=== PATIENT | male | born 1950 | race Caucasian/White ===

== ENCOUNTER 2023-05-22 17:25 | Emergency (ER) | payer MEDICARE, MEDICAID, SELFPAY ==
--- NOTE | ~2023-05-22 | XR_ITS ---
EXAMINATION: XR FOOT, RIGHT CLINICAL INFORMATION: Second toe pain, swelling. COMPARISON: None available. TECHNIQUE: AP, lateral, and oblique views of the right foot. FINDINGS: The bones and soft tissues are normal. No fracture. Alignment is anatomic. Joint spaces are maintained. There is a small retrocalcaneal enthesophyte. XR/XR foot RT min 3V IMPRESSION: Unremarkable right foot exam
--- NOTE | 2023-05-22 17:44 | ED.BACK ---
HPI - Back Pain/Injury General Chief Complaint: Skin/Abscess/Foreign Body Stated Complaint: lower back pain, toe pain Time Seen by Provider: 05/22/23 21:01 Source: patient Mode of arrival: ambulatory Limitations: no limitations History of Present Illness HPI Narrative: Patient is a 72-year-old male presenting to the emergency department with multiple complaints. He reports right 2nd toe pain for 4 days since dropping a can of tuna on his foot. He also complains of a wound to his left buttock for several days. States he was on the ground doing sit-ups and it unsure if injured the area that way. Reports intermittent shortness of breath for the past 2-3 days but denies cough or fevers. Denies chest pain or palpitations. Denies abdominal pain, nausea, vomiting, diarrhea. Denies sore throat or ear pain. MD elicited complaint: back pain Onset (ago): day(s) Timing: constant Severity: severe Similar Symptoms Previously: No Quality: aching Work related injury: No Related Data Previous Rx's Medication Instructions Recorded cephalexin 500 mg capsule 500 mg PO QID 10 days #40 caps 05/22/23 doxycycline hyclate 100 mg capsule 100 mg PO BID #20 caps 05/22/23 Allergies Allergy/AdvReac Type Severity Reaction Status Date / Time No Known Allergies Allergy Verified 05/22/23 17:51 [No Known Allergies*] Review of Systems Review of Systems: As per HPI. Yes all other systems are reviewed and are negative Constitutional: Constitutional: Reports as per HPI [facility] Social History Social History Advance Directives: No Advance Directives Information Provided: No Physical Exam Vital Signs: Vital Signs: Last Vital Signs Temp 100.8 F H 05/22/23 21:49 Pulse 88 05/22/23 21:49 Resp 16 05/22/23 21:49 BP 147/89 H 05/22/23 21:49 Pulse Ox 96 05/22/23 21:49 O2 Del Method Room Air 05/22/23 21:49 BMI result Body Mass Index 26.7 Vital signs have been reviewed and appear to be correct. Blood pressure normal. Heart rate normal. Respiratory rate normal. Temperature febrile. Oxygen saturation normal. Const: General: cooperative, healthy appearing and no acute distress Orientation/consciousness: oriented to person, oriented to place, oriented to time and patient oriented x3 Limitations: no limitations HEENT: Head: Yes normocephalic and Yes atraumatic Ears: external ears normal General nose exam: Normal external nose present Face and sinus: Yes face symmetric Mouth: oropharynx normal and moist mucous membranes Throat: Yes uvula midline Eyes: Pupils: Equal, round and reactive pupils present Neck: Neck: Yes normal visual inspection and Yes supple Resp: Effort & Inspection: normal respiratory effort and able to speak in complete sentences Auscultation: clear to auscultation bilaterally Cardio: Rate: regular rate Rhythm: regular rhythm Heart sounds: S1 normal heart sound present and S2 normal heart sound present GI: Palpation (GI): Soft to palpation and nontender Auscultation: normoactive bowel sounds : General: Yes no CVA tenderness Back/Spine/Pelvis: Back: no CVA tenderness Skin: General skin exam: elasticity normal and turgor normal Full body images: 1. Large area of erythema and induration to left medial buttock with central puncture wound, no fluctuance or drainage Neuro: General: oriented to person, oriented to place, oriented to time, patient oriented x3, moves all extremities, no focal motor deficits and CN's II-XI intact bilaterally Cranial nerves: Yes Equal, round and reactive pupils present Cognition (Neuro): normal cognition Extrem: General: Yes full ROM, Yes no pedal edema and Yes no calf tenderness Psych: Mental Status: mental status grossly normal Affect: normal affect Thought process: Normal thought process present Course Course Course Narrative: c/o shortness of breath x 3 days Injury to right little toe after dropping a can onto it. States the toenail is coming off Lesion to left upper buttock x 5 days. States the lesion is hard and roughly 4 cm wide. He is concerned there may be a piece of glass or metal in the lesion causing the pain. States he ate a chicken 5 days ago that smelled like antifreeze. Denies n/v/d, fevers, or chills RME: A&Ox4, BARRY x 4, LS CTA, HR RRR, 4 cm circular warm area on left inner buttock with no evidence of purulent discharge RME completed by Osmel Medications Administered Discontinued Medications Generic Name Dose Route Start Last Admin Trade Name Freq PRN Reason Stop Dose Admin Acetaminophen 650 mg 05/22/23 22:43 05/22/23 22:50 Acetaminophen 325 Mg Tablet PO 05/22/23 22:44 Not Given ONCE ONE Cephalexin HCl 500 mg 05/22/23 22:43 05/22/23 22:50 Cephalexin 500 Mg Capsule PO 05/22/23 22:44 Not Given ONCE ONE Doxycycline Monohydrate 100 mg 05/22/23 22:43 05/22/23 22:50 Doxycycline Monohydrate 100 Mg Capsule PO 05/22/23 22:44 Not Given ONCE ONE Medical Decision Making Medical Decision Making [facility] Narrative: Patient is a 72-year-old male presenting to the emergency department with multiple complaints. On exam patient is awake, A+Ox3, BP elevated, VS otherwise WNL, febrile, normal neurological exam without focal deficits, physical exam findings as above. Given reported symptoms and physical exam findings, initial differential includes abscess vs cellulitis, right toe contusion vs fracture, viral illness, Covid, flu, bronchitis. Labs drawn in waiting room notable for leukocytosis with left shift, elevated CRP and ESR. Covid swab positive. Patient stating that he wishes to leave against medical advise prior to x-ray or imaging of buttock because he needs to feed his dog. Discussed risks of leaving with patient, up to and including sepsis, and/or and patient signed AMA form. Will send prescriptions for doxycycline and Keflex to the pharmacy for buttock abscess. Patient declined treatment with Paxlovid for COVID. Patient declining imaging of right toe or buttock. Advised patient he can return to the emergency department at any time. Can use Tylenol and ibuprofen for pain and fever. Return precautions discussed with patient and he verbalized understanding, states he will return tomorrow after caring for his dog. Differential Diagnosis Differential Diagnoses: The differential diagnosis associated with the presentation includes As per [facility]. Lab Data [facility] Lab Attestation statement: I reviewed the patient's lab results. As per [facility] 05/22/23 18:30 05/22/23 18:30 Labs: Lab Results 05/22/23 Range/Units 18:30 WBC 12.3 H (4.8-10.8) X10*3/uL RBC 4.28 L (4.60-5.80) X10*6/uL Hgb 13.0 L (14.0-18.0) g/dl Hct 38.1 L (42.0-52.0) % MCV 89.0 (80.0-98.0) fL MCH 30.4 (27.0-33.0) pg MCHC 34.1 (31.0-36.0) g/dl RDW 12.5 (11.0-16.0) % Plt Count 147 L (160-400) X10*3/uL MPV 9.6 (9.4-12.4) fL Immature Gran % (Auto) 0.2 (0.0-0.4) % Neut % (Auto) 86.4 H (45-73) % Lymph % (Auto) 7.6 L (20-40) % [place] % (Auto) 5.7 (2-11) % Eos % (Auto) 0.0 (0-4) % Baso % (Auto) 0.1 (0-2) % Lymph # (Auto) 0.9 L (1.2-4.9) X10*3/uL [place] # (Auto) 0.7 (0.1-1.2) X10*3/uL Eos # (Auto) 0.0 (0.0-0.4) X10*3/uL Baso # (Auto) 0.0 (0.0-0.2) X10*3/uL Abs Immat Gran (auto) 0.03 (0.00-0.03) X10*3/uL Absolute Neuts (auto) 10.6 H (2.0-8.3) x10*3/uL Absolute Nucleated RBC 0.000 (0.0-0.012) X10*3/uL Nucleated RBC % (auto) 0.0 (0.0-0.2) /100WBC ESR 75 H (0-15) MM/HR Sodium 136 (135-145) mmol/L Potassium 4.0 (3.3-5.1) mmol/L Chloride 100 (96-108) mmol/L Carbon Dioxide 27 (22-29) mmol/L Anion Gap 13 (12-20) BUN 14 (9-16) mg/dL Creatinine 1.02 (0.5-1.4) mg/dL Estim Creat Clear Calc 71.7 Estimated GFR > 60 Random Glucose 129 H (60-115) mg/dL Calcium 9.2 (8.4-10.2) mg/dL Total Bilirubin 1.1 H (0.0-1.0) mg/dL AST 53 H (5-37) U/L ALT 30 (0-40) U/L Alkaline Phosphatase 102 (39-117) U/L C-Reactive Protein 14.48 H (< or = 0.50) mg/dL Total Protein 8.3 H (6.5-8.0) g/dL Albumin 4.3 (3.5-5.0) g/dL COVID-19 (MARIA EUGENIA) Positive A (Negative) COVID-19 Clin Com See Note Influenza Type A (JAYE) Negative (Negative) Influenza Type B (JAYE) Negative (Negative) Influenza A & B Note See Note External Record Review External record reviewed: Inpatient record, Office record and Outpatient record Tests considered The following testing was considered but not selected: x-ray, CT, patient left AMA Prescription Management I considered prescription management with: Antibiotic Discharge Plan Discharge Clinical Impression: Abscess of buttock, left, Toe pain, right, COVID-19 Patient Disposition: Left Against Medical Advice Instructions: Abscess (ED), Abscess Follow-up (ED), COVID-19 (Coronavirus Disease 2019) (ED) Additional Instructions: You have been evaluated in the emergency department today for skin infection, also known as an abscess. Please take your prescribed antibiotics as directed for the full course of the medication. You should also apply warm compresses to your buttocks several times daily. Please assess the area daily for signs of increasing redness, swelling, thick yellow drainage and return immediately if this occurs. You tested positive for Covid today, please continue to wear a mask while symptomatic. You can use Tylenol or ibuprofen per package instructions every 6 hours as needed for pain. If necessary, you can alternate these medications so that you can take one medication every 3 hours. For instance, at noon take ibuprofen, then at 3:00 p.m. take Tylenol, then at 6:00 p.m. take ibuprofen. Please schedule an appointment for follow-up with your primary care physician as soon as possible. Return to the emergency department if you experience recurrent vomiting, fevers greater than 100.4? F, increasing area of redness, warmth around the area, foul-smelling discharge from the area, increased tenderness around the area, or any other concerning symptoms. Prescriptions: New doxycycline hyclate 100 mg capsule 100 mg PO BID Qty: 20 0RF cephalexin 500 mg capsule 500 mg PO QID 10 Days Qty: 40 0RF Stand Alone Forms: Against Medical Advice Discharge Date/Time: 05/22/23 22:51
[2023-05-22 17:46] VITALS: BP 139/86; PULSE 106; RESP 20; TEMP 37.2; O2SAT 97; BMI 26.7
[2023-05-22 18:34] LABS: MANUAL DIFF FLAG NO
[2023-05-22 18:35] LABS: Basophils Percent Auto 0.1 % (0-2); Hematocrit 38.1 % (42.0-52.0); Imm Gran Abs Auto 0.03 X10*3/uL (0.00-0.03); Imm Gran Pct Auto 0.2 % (0.0-0.4); Lymphocytes Absolute Auto 0.9 X10*3/uL (1.2-4.9); Lymphocytes Percent Auto 7.6 % (20-40); Mean Corpuscular HGB Conc 34.1 g/dl (31.0-36.0); Mean Corpuscular Hemoglobin 30.4 pg (27.0-33.0); Mean Platelet Volume 9.6 fL (9.4-12.4); Monocytes Absolute Auto 0.7 X10*3/uL (0.1-1.2); Monocytes Percent Auto 5.7 % (2-11); Neutrophils Absolute Auto 10.6 x10*3/uL (2.0-8.3); Neutrophils Percent Auto 86.4 % (45-73); Platelet Count 147 X10*3/uL (160-400); Red Blood Count 4.28 X10*6/uL (4.60-5.80); Red Cell Distribution Width 12.5 % (11.0-16.0); White Blood Count 12.3 X10*3/uL (4.8-10.8)
[2023-05-22 18:49] LABS: Alanine Aminotransferase 30 U/L (0-40); Albumin Level 4.3 g/dL (3.5-5.0); Alkaline Phosphatase 102 U/L (39-117); Anion Gap 13 (12-20); Aspartate Amino Transferase 53 U/L (5-37); Bilirubin Total 1.1 mg/dL (0.0-1.0); Blood Urea Nitrogen 14 mg/dL (9-16); C Reactive Protein 14.48 mg/dL (< or = 0.50); Calcium 9.2 mg/dL (8.4-10.2); Carbon Dioxide 27 mmol/L (22-29); Chloride 100 mmol/L (96-108); Creatinine Clr Calc Pharmacy 71.7; Estimated Glomerular Filt Rate > 60; Glucose Random 129 mg/dL (60-115); Sodium 136 mmol/L (135-145); Total Protein 8.3 g/dL (6.5-8.0)
[2023-05-22 18:51] LABS: COVID-19 Test Positive (Negative); IDNOW Serial# 08D9AD1C; IDNOW Serial# 152EDE1D; Influenza A Negative (Negative); Influenza B2 Negative (Negative)
[2023-05-22 19:12] LABS: Erythrocyte Sedimentation Rate 75 MM/HR (0-15)
[2023-05-22 19:50] VITALS: BP 162/96; PULSE 96; RESP 16; TEMP 37.9; O2SAT 96
[2023-05-22 21:49] VITALS: BP 147/89; PULSE 88; RESP 16; TEMP 38.2; O2SAT 96
== END 2023-05-22 22:51 | disposition left against medical advice (07) ==
PROVIDERS: Nurse Practitioner Family; Emergency Provider Student in an Organized Health Care Education/Training Program
DX: U07.1 COVID-19 (principal); R06.02 Shortness of breath; M79.674 Pain in right toe(s); L02.31 Cutaneous abscess of buttock
CPT/HCPCS: 36415; 73630; 80053; 85025; 85652; 86140; 87502; 87635; 99283

== ENCOUNTER 2025-01-24 15:18 | Outpatient (REF) | payer MEDICARE, MEDICAID, SELFPAY ==
--- NOTE | ~2025-01-24 | XR_ITS ---
EXAMINATION: XR KNEE, RIGHT CLINICAL INFORMATION: swelling in R knee x 3 mo COMPARISON: None available. TECHNIQUE: Three views of the right knee. FINDINGS: No fracture, dislocation, or suspicious bone lesion. There is severe medial compartment joint space narrowing with near hraa-nx-aqso appearance, mild subchondral sclerosis and marginal osteophytic spurs. There are mild to moderate similar patellofemoral joint changes. Minimal varus angulation of the knee. There is spurring of the tibial spines. There is a large suprapatellar joint effusion. There is no soft tissue abnormality. XR/XR knee RT 3V IMPRESSION: 1. No acute bony abnormalities of the right knee. 2. Severe medial compartment joint space narrowing. 3. Joint effusion. Electronically signed by: Shiraz Ruvalcaba MD 01/24/2025 04:16 PM EDT
--- OUTSIDE RECORDS SUMMARY | 2025-01-24 14:20 | XMS_ITS | Encounter Summary ---
Author Organization [employer] Address [address] [place] [address] Care Team Providers Care Commissions Manager Name Role Phone Unavailable Primary Care Provider Unavailabl e Reason for Referral * Consultation (Routine) - Pending Review Specialty Diagnoses / Procedures Referred By Michael isabel Referred To Contact Orthopaedic Surgery Diagnoses Pain and swelling of right knee Sunni Gaines ANP [address] [place] [address] Phone: tel: fax: Referral ID Status Reason Start Date Expiration Date Visits Requested Visits Authorized [id number] Pending Review Specialty Services Required 01/24/2025 01/24/2026 1 1 Reason for Visit * Reason Comments Altered Mental Status Depression Encounter Details Date Type Department Care Team (Late st Contact Info) Description 01/24/2025 2:20 PM EDT Office Visit [facility] [address] [place] [address] Sunni Gaines ANP [address] [place] [address] Anxiety and depression (Primary Dx); Pain and swelling of right knee; Routine screening for STI (sexually transmitted infection); Screening, lipid Social History Tobacco Use Types Packs/Day Years Used Date Smoking Tobacco: Never Passive Smoke Exposure: Never Smokeless Tobacco: Never Alcohol Use Standard Drinks/Week Comments Never 0 (1 standard drink = 0.6 oz pur e alcohol) Sex and Gender Information Value Date Recorded Sex Assigned at Male 03/11/2022 10:30 AM EDT Legal Sex Male 10:30 AM EDT Gender Identity Male 03/11/2022 10:30 AM EDT Sexual Orientation Straight 03/11/2022 10 :30 AM EDT documented as of this encounter Last Filed Vital Signs Vital Sign Reading Time Taken Comments Blood Pressure 128/76 01/24/2025 2:08 PM EDT Pulse 86 01/24/2025 2:08 PM EDT Temperature 37 C (98.6 F) 01/24/2025 2:08 PM EDT Respiratory Rate 18 01/24/2025 2:08 PM EDT Oxygen Saturation 96% 01/24/2025 2:08 PM EDT Inhaled Oxygen Concentration - - Weight 89.5 kg (197 lb 6.4 oz) 01/24/2025 2:08 P M EDT Height - - Body Mass Index 27.53 03/26/2024 1:19 PM EST documented in this encounter Progress Notes * ANGELO Bentley - 01/24/2025 2:40 PM EDT Lorenzo Styles is 74 y.o. patient here today for sick visit. HPI Relatively new pt to [facility], not yet established w/ PCP. Last visit here 08/04/24 for shingles Lives alone. Never smoked. No EtOH Not employed. He is here today mostly for therapy and services. Does report knee pain as below Clinician Chinyere (Sarahi Emerson) to room. PMH incl cut to E in 1971 when he injured circulation in RLE and reports now has varicose veins and R knee swelling R knee swelling: for 3 mos, improving but still persists RLE +varicose veins, mild swelling, R knee Uses golf club to ambulate (like a cane) Smokes MJ Review of Systems Constitutional: Negative for chills and fever. HENT: Negative for sore throat. Respiratory: Negative for cough and shortness of breath. Cardiovascular: Negative for chest pain. Gastrointestinal: Negative for constipation and diarrhea. Endocrine: Negative for polydipsia, polyphagia and polyuria. Genitourinary: Negative for dysuria. Musculoskeletal: Positive for arthralgias, gait problem and joint swelling. Psychiatric/Behavioral: Positive for dysphoric mood. The patient is nervous/anxious. Problem List[1] Objective BP 128/76 (BP Location: Left arm, Patient Position: Sitting, BP Cuff Size: Adult) Pulse 86 Temp98.6 ??F (37 ??C) (Oral) Resp 18 Wt 197 lb 6.4 oz (89.5 kg) SpO2 96% BMI 27.53 kg/m?? Physical Exam Vitals reviewed. Constitutional: General: He is not in acute distress. Appearance: Normal appearance. He is not ill-appearing. HENT: Head: Normocephalic and atraumatic. Eyes: General: No scleral icterus. Extraocular Movements: Extraocular movements intact. Pupils: Pupils are equal, round, and reactive to light. Cardiovascular: Rate and Rhythm: Normal rate and regular rhythm. Pulmonary: Effort: Pulmonary effort is normal. No accessory muscle usage or respiratory distress. Musculoskeletal: Comments: R knee swollen, no erythema; Trace swelling RLE, +moderate varicosities Neurological: Mental Status: He is alert and oriented to person, place, and time. Psychiatric: Mood and Affect: Mood normal. Behavior: Behavior normal. Diagnoses and all orders for this visit: Anxiety and depression Check labs as ordered today and previously Met w/ clinician today who will refer to therapy services Reviewed impact of depression/anxiety and stress on memory and things like word recall, and how marijuana use can also impact this Encouraged to smoke less MJ - TSH W/Reflex to FT4; Future Pain and swelling of right knee Ortho referral and check XR Walks w cane - needs actual cane, using golf club - XR Knee 3 Views Right; Future Routine screening for STI (sexually transmitted infection) New pt labs - Hepatitis C Antibody with Reflex to HCV, RNA, Quantitative, Real-Time PCR; Future - HIV-1/2 Antigen and Antibodies, Fourth Generation, with Reflexes; Future - Syphilis Screen; Future Screening, lipid - Lipid Panel, Standard; Future No future appointments. Messaged new pt team again for appt, pt now has new phone # [1] There is no problem list on file for this patient. documented in this encounter Plan of Treatment Scheduled Orders Name Type Priority Associated Diagnoses Orde r Schedule TSH W/Reflex to FT4 Lab Routine Anxiety and depression Expected: 01/24/2025 (Approximate), Expires: 01/24/2026 Hepatitis C Antibody with Reflex to HCV, RNA, Quantitative, Real-Time PCR Lab Routine Routine screening for STI (sexually transmitted infection) Expected: 01/24/2025 (Approximate), Expires: 01/24/2026 HIV-1/2 Antigen and Antibodies, Fourth Generation, with Reflexes Lab Routine Routine screening for STI (sexually transmitted infection) Expected: 01/24/2025 (Approximate), Expires: 01/24/2026 Syphilis Screen Lab Routine Routine screening for STI (sexually transmitted infection) Expected: 01/24/2025 (Approximate), Expires: 01/24/2026 Lipid Panel, Standard Lab Routine Screening, lipid Expected: 01/24/2025 (Approximate), Expires: 01/24/2026 Scheduled Referrals Name Type Priority Associated Diagnoses Order Schedule Referral to Orthopaedic Surgery Outpatient Referral Routine Pain and swelling of right knee Expected: 01/24/2025 (Approximate), Expires: 01/24/2026 documented as of this encounter Procedures Procedure Name Priority Date/Time Associated Diagnosis Comments XR KNEE 3 VIEWS RIGHT Routine 01/24/2025 4:00 PM EDT Pain and swelling of right knee documented in this encounter Results * XR Knee 3 Views Right (01/24/2025 4:00 PM EDT) Anatomical Region Laterality Modality Lower Extremities, Knee Right [facility] 01/24/2025 4:00 PM EDT Narrative 01/24/2025 4:19 [place] [address] XRay Report Signed Patient: Lorenzo Styles MR#: [id number] 6 : 1950 Acct:[id number] Age/Sex: 74 / M ADM Date: 01/24/25 Loc: HO.HHCX Attending Dr: Sunni Gaines NP Ordering Physician: SUNNI GAINES NP Date of Service: 01/24/25 Procedure(s): XR knee RT 3V Accession Number(s): [id number] cc: SUNNI GAINES NP Reason for Exam: swelling in R knee x 3 mo EXAMINATION: XR KNEE, RIGHT CLINICAL INFORMATION: swelling in R knee x 3 mo COMPARISON: None available. TECHNIQUE: Three views of the right knee. FINDINGS: No fracture, dislocation, or suspicious bone lesion. There is severe medial compartment joint space narrowing with near [id number] appearance, mild subchondral sclerosis and marginal osteophytic spurs. There are mild to moderate similar patellofemoral joint changes. Minimal varus angulation of the knee. There is spurring of the tibial spines. There is a large suprapatellar joint effusion. There is no soft tissue abnormality. XR/XR knee RT 3V IMPRESSION: 1. No acute bony abnormalities of the right knee. 2. Severe medial compartment joint space narrowing. 3. Joint effusion. Electronically signed by: Shiraz Ruvalcaba MD 01/24/2025 04:16 PM EDT Dictated By: Shiraz Ruvalcaba MD Signed By: <Electronically signed by Shiraz Ruvalcaba MD in OV> 01/24/25 1616 DD/ 1600 TD/TT: 01/24/25 1605 Shipping Clerk Packing: Procedure Note Donotuseinterpreter, Image - 01/24/2025 [place] [address] XRay Report Signed Patient: Lorenzo StylesMR#: [id number] 6 : 1950cct:[id number] Age/Sex: 74 / MADM Date: 01/24/25 Loc: HO.HHCX Attending Dr: Sunni Gaines NP Ordering Physician: SUNNI GAINES NP Date of Service: 01/24/25 Procedure(s): XR knee RT 3V Accession Number(s): [id number] cc: SUNNI GAINES NP Reason for Exam: swelling in R knee x 3 mo EXAMINATION: XR KNEE, RIGHT CLINICAL INFORMATION: swelling in R knee x 3 mo COMPARISON: None available. TECHNIQUE: Three views of the right knee. FINDINGS: No fracture, dislocation, or suspicious bone lesion. There is severe medial compartment joint space narrowing with near [id number] appearance, mild subchondral sclerosis and marginal osteophytic spurs. There are mild to moderate similar patellofemoral joint changes. Minimal varus angulation of the knee. There is spurring of the tibial spines. There is a large suprapatellar joint effusion. There is no soft tissue abnormality. XR/XR knee RT 3V IMPRESSION: 1. No acute bony abnormalities of the right knee. 2. Severe medial compartment joint space narrowing. 3. Joint effusion. Electronically signed by: Shiraz Ruvalcaba MD 01/24/2025 04:16 PM EDT Dictated By: Shiraz Ruvalcaba MD Signed By: <Electronically signed by Shiraz Ruvalcaba MD in OV> 01/24/25 1616 DD/ 1600 TD/TT: 01/24/25 1605 Shipping Clerk Packing: Sunni STEPHENS IMG XR PROCEDURES Final Result documented in this encounter Visit Diagnoses Diagnosis Anxiety and depression- Primary Pain and swelling of right knee Routine screening for STI (sexually transmitted infection) Screening examination for venereal disease Screening, lipid documented in this encounter
--- OUTSIDE RECORDS SUMMARY | 2025-01-24 20:47 | XMS_ITS | Encounter Summary ---
Author Organization [employer] Address [address] [place] [address] Care Team Providers Care Utility Tractor Operator Name Role Phone Unavailable Primary Care Provider Unavailabl e Encounter Details Date Type Department Care Team (Late st Contact Info) Description 01/24/2025 Telephone [facility] [address] [place], [place] [phone] Nivia Myles MD [address] [place] [address] Social History Tobacco Use Types Packs/Day Years [...] AM EDT documented as of this encounter Miscellaneous Notes * Telephone Encounter - Carolyn Finley - 01/24/2025 12:25 PM EDT Patient added to [facility] New patient wait list as of 01/24/15. * Telephone Encounter - Lucinda Rodríguez - 01/24/2025 11:58 AM EDT Lornezo Styles was seen by insurance enrollment department and can have a new patient appointment scheduled. Depression , anxiety, knee pain documented in this encounter Plan of Treatment Not on file documented as of this encounter Visit Diagnoses Not on filedocumented in this encounter
--- OUTSIDE RECORDS SUMMARY | 2025-01-24 20:47 | XMS_ITS | Clinical Summary ---
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 15 g 4 Active acetaminophen (Tylenol) 500 MG tablet Take 2 tablets (1,000 mg) by mouth every 6 (six) hours if needed for moderate pain or fever for up to 25 doses. 50 tablet 5 Active ibuprofen 400 MG tablet Take 1 tablet (400 mg) by mouth every 6 (six) hours if needed for moderate pain or fever for up to 30 doses. 20 tablet 5 Active Blood Pressure kit 1 each 2 times daily. 1 kit 5 08/05/19 26 Active Melatonin 3 MG capsule Take 3 mg by mouth if needed at bedtime (sleep). 30 capsule 5 Active Active Problems No known active problems Encounters Date Type Department Care Team Description 01/24/2025 2:20 PM EDT Office Visit [facility] [address] [place] [address] Sunni Gaines ANP Anxiety and depression (Primary Dx); Pain and swelling of right knee; Routine screening for STI (sexually transmitted infection); Screening, lipid 01/24/2025 Travel 01/24/2025 Telephone [facility] [address] [place], [place] [id number] Nivia Myles MD from Last 3 Months Social History Tobacco Use Types Packs/Day Years Used Date Smoking Tobacco: Never Passive Smoke Exposure: Never Smokeless Tobacco: Never Tobacco Cessation:Counseling Given: Not Answered Alcohol Use Standard Drinks/Week Comments Never 0 (1 standard drink = 0.6 oz pur e alcohol) Sex and Gender Information Value Date Recorded Sex Assigned at Male 03/11/2022 10:30 AM EDT Legal Sex Male 10:30 AM EDT Gender Identity Male 03/11/2022 10:30 AM EDT Sexual Orientation Straight 03/11/2022 10 :30 AM EDT Last Filed Vital Signs Vital Sign Reading [...] oz) 01/24/2025 2:08 P M EDT Height 180.3 cm (5' 11 ) 03/26/2024 1:19 PM EST Body Mass Index 27.53 03/26/2024 1:19 PM EST Plan of Treatment Health Maintenance Due Date Last Done Comments CT Colonography 1952 Colonoscopy 1952 Colorectal Cancer Screening 1952 Dental Oral Exam 1952 Dental Prophylaxis 1952 Dental X-Ray: Bitewings 1952 Dental X-Ray: Full Mouth 1952 Depression Screening 1952 FIT DNA/Cologuard 1952 FIT 1952 FOBT 1952 Lipid Panel 1952 SDOH Screening 1952 Sigmoidoscopy 1952 Alcohol/Substance Use Screening 1964 Hepatitis C Screening 1970 DTaP/Tdap/Td Vaccines (1 - Tdap) 11/28/1971 Pneumococcal Vaccine: 50+ Ye ars (1 of 1 - PCV) 2002 Zoster Vaccines (1 of 2) 2002 COVID-19 Vaccine (1 - 2023-2 5 season) 2025 Influenza Vaccine (#1) 2025 Tobacco Screening 01/24/2026 01/24/2025 RSV Patients and Pa tients Aged 60 years or older (1 - 1-dose 75+ series) 11/28/2027 HIB Vaccines Aged Out No longer eligi ble based on patient's age to complete this topic HPV Vaccines Aged Out No longer eligi ble based on patient's age to complete this topic Hepatitis A Vaccines Aged Out No long er eligible based on patient's age to complete this topic Hepatitis B Vaccines Aged Out No long er eligible based on patient's age to complete this topic IPV Vaccines Aged Out No longer eligi ble based on patient's age to complete this topic Meningococcal B Vaccine Aged Out No l onger eligible based on patient's age to complete this topic Meningococcal Vaccine Aged Out No adalberto manoj eligible based on patient's age to complete this topic RSV under 20 months Aged Out No longe r eligible based on patient's age to complete this topic Rotavirus Vaccines Aged Out No longer eligible based on patient's age to complete this topic Procedures Procedure Name Priority Date/Time Associated Diagnosis Comments XR KNEE 3 VIEWS RIGHT Routine 01/24/2025 4:00 PM EDT Pain and swelling of right knee from Last 3 Months Results * XR Knee 3 Views Right (01/24/2025 4:00 PM EDT) Anatomical Region Laterality Modality Lower Extremities, Knee Right Radiogra phic Imaging 01/24/2025 4:00 PM EDT Narrative 01/24/2025 4:19 PM EDT [address] [address] XRay Report Signed Patient: Lorenzo Styles MR#: [id number] 6 : 1950 Acct:[id number] Age/Sex: 74 / M ADM Date: 01/24/25 Loc: HO.HHCX Attending Dr: Sunni Gaines NP Ordering Physician: SUNNI GAINES NP Date of Service: 01/24/25 Procedure(s): XR knee RT 3V Accession Number(s): [id number] cc: SUNNI GAINES NP Reason for Exam: swelling in R knee x 3 mo EXAMINATION: XR KNEE, RIGHT CLINICAL INFORMATION: swelling in R knee x 3 mo COMPARISON: None available. TECHNIQUE: Three views of the right knee. FINDINGS: No fracture, dislocation, or suspicious bone lesion. There is severe medial compartment joint space narrowing with near ldch-yk-grbo appearance, mild subchondral sclerosis and marginal osteophytic [...] Shiraz Ruvalcaba MD 01/24/2025 04:16 PM EDT RP Dictated By: Shiraz Ruvalcaba MD Signed By: <Electronically signed by Shiraz Ruvalcaba MD in OV> 01/24/25 1616 DD/ 1600 TD/TT: 01/24/25 1605 Dining Manager: Procedure Note Donotuseinterpreter, Image - 01/24/[address] [address] XRay Report Signed Patient: Lorenzo StylesMR#: [id number] 6 : 1950cct:[id number] Age/Sex: 74 / MADM Date: 01/24/25 Loc: HO.HHCX Attending Dr: Sunni Gaines NP Ordering Physician: SUNNI GAINES NP Date of Service: 01/24/25 Procedure(s): XR knee RT 3V Accession Number(s): [id number] cc: SUNNI GAINES NP Reason for Exam: swelling in R knee x 3 mo EXAMINATION: XR KNEE, RIGHT CLINICAL INFORMATION: swelling in R knee x 3 mo COMPARISON: None available. TECHNIQUE: Three views of the right knee. FINDINGS: No fracture, dislocation, or suspicious bone lesion. There is severe medial compartment joint space narrowing with near baur-xf-dapg appearance, mild subchondral sclerosis and marginal osteophytic [...] Shiraz Ruvalcaba MD 01/24/2025 04:16 PM EDT RP Workstation: [id number] Dictated By: Shiraz Ruvalcaba MD Signed By: <Electronically signed by Shiraz Ruvalcaba MD in OV> 01/24/25 1616 DD/ 1600 TD/TT: 01/24/25 1605 Dining Manager: Sunni Rochester ANP IMG XR PROCEDURES Final Result from Last 3 Months Insurance [facility] MEDICARE [facility] MEDICAID STAND ADULT
--- OUTSIDE RECORDS SUMMARY | 2025-01-24 20:47 | XMS_ITS | Encounter Summary ---
Author Organization [employer] Address [address] [facility] [address] [place] [address] Care Team Providers Care Master Data Analyst Name Role Phone Unavailable Primary Care Provider Unavailabl e Encounter Details Date Type Department Care Team (Latest Contact Info) Description 01/24/2025 Travel Social History Tobacco Use Types Packs/Day Years [...] AM EDT documented as of this encounter Plan of Treatment Not on file documented as of this encounter Visit Diagnoses Not on filedocumented in this encounter
== END 2025-01-24 15:19 | disposition home or self-care (01) ==
LOC: HO.HHCX 15:18
PROVIDERS: PCP Nurse Practitioner Primary Care; Visit Provider Nurse Practitioner Primary Care
DX: M25.561 Pain in right knee (principal); M25.461 Effusion, right knee
CPT/HCPCS: 73562

== ENCOUNTER → 2025-01-24 15:26 | Outpatient (BNV) | payer MEDICARE, MEDICAID, SELFPAY | PROVIDERS: PCP Nurse Practitioner Primary Care; Visit Provider Radiology Diagnostic Radiology | DX: M25.461 Effusion, right knee (principal) | CPT/HCPCS: 73562 ==